=== PATIENT | male | born 1985 ===

== ENCOUNTER 2018-11-11 05:09 | Emergency (ER) | payer BC ==
[2018-11-11 05:40] LABS: Bilirubin Negative (Negative); Blood, Urine Negative (Negative); Clarity CLEAR (Clear); Glucose, Urine (Dipstick) Negative (Negative); Leukocyte Negative (Negative); Nitrite Negative (Negative); Protein, Urine (Dipstick) Negative (Neg-Trace); Specific Gravity, Urine 1.018 (1.002-1.036); Urobilinogen 0.2 mg/dL (0.2-1.0); pH, Urine 7.5 (5.0-9.0)
[2018-11-11 05:56] LABS: #Basophils 0.1 thou/uL (0.0-0.2); #Eosinphils 0.1 thou/uL (0.0-0.7); #Lymphocytes 1.8 thou/uL (1.20-3.40); #Neutrophils 14.6 thou/uL (1.40-6.50); %Basophils 0.3 % (0.0-1.0); %Eosinophils 0.7 % (0.0-10.0); %Lymphocytes 10.3 % (21.0-51.0); %Monocytes 5.8 % (0.0-10.0); %Neutrophils 82.9 % (42.0-75.0); Hemoglobin 15.8 g/dL (14.0-18.0); Mean Corpuscular HGB CONC 32.4 g/dL (32.0-36.0); Mean Corpuscular Hemoglobin 27.6 pg (27.0-31.0); Mean Corpuscular Volume 85.3 fL (78.0-98.0); Mean Platelet Volume 9.9 fL (7.4-10.4); Platelet Count 150 thou/uL (130-400); RBC Distribution Width 11.5 % (11.5-14.5); Red Blood Cell (RBC) Count 5.73 mill/uL (4.70-6.10); White Blood Cell (WBC) Count 17.6 thou/uL (4.8-10.8)
[2018-11-11 06:12] LABS: ALT (SGPT) 29 U/L (8-55); AST (SGOT) 17 U/L (5-34); Albumin 4.7 g/dL (3.5-5.0); Alkaline Phosphatase 92 U/L (40-150); Anion Gap 12 mmol/L (10-20); BUN (Urea Nitrogen) 14 mg/dL (8.9-20.6); Bilirubin, Total 0.8 mg/dL (0.2-1.2); Calc. Creatinine Clearance 0 mL/min (70-130); Carbon Dioxide 28 mmol/L (22-29); Chloride 100 mmol/L (98-107); Estimated GFR-MDRD 86; Glucose 108 mg/dL (70-105); Lipase 21 U/L (8-78); Potassium 3.7 mmol/L (3.5-5.1); Protein, Total 7.7 g/dL (6.0-8.3); Sodium 136 mmol/L (136-145)
== END 2018-11-11 06:46 | disposition left against medical advice (07) ==
LOC: ERS 05:09
DX: R10.11 Right upper quadrant pain (principal); R10.33 Periumbilical pain
CPT/HCPCS: 36415; 80053; 81003; 83690; 85025; 99283

== ENCOUNTER 2018-11-12 09:23 | Day surgery (SDC) | payer BC ==
[2018-11-12] MEDS ORDERED: Iopamidol 370 76% 100 ML VIAL ONE (09:32)
[2018-11-12 09:56] LABS: Hemoglobin 15.7 g/dL (14.0-18.0); Mean Corpuscular HGB CONC 32.2 g/dL (32.0-36.0); Mean Corpuscular Hemoglobin 27.9 pg (27.0-31.0); Mean Corpuscular Volume 86.8 fL (78.0-98.0); Mean Platelet Volume 12.9 fL (7.4-10.4); Platelet Count 135 thou/uL (130-400); Red Blood Cell (RBC) Count 5.63 mill/uL (4.70-6.10); White Blood Cell (WBC) Count 8.1 thou/uL (4.8-10.8)
[2018-11-12 10:03] LABS: ALT (SGPT) 26 U/L (8-55); AST (SGOT) 13 U/L (5-34); Albumin 4.6 g/dL (3.5-5.0); Alkaline Phosphatase 86 U/L (40-150); Anion Gap 11 mmol/L (10-20); BUN (Urea Nitrogen) 11 mg/dL (8.9-20.6); Bilirubin, Total 0.9 mg/dL (0.2-1.2); Calc. Creatinine Clearance 0 mL/min (70-130); Calcium 9.9 mg/dL (7.8-10.44); Carbon Dioxide 27 mmol/L (22-29); Chloride 105 mmol/L (98-107); Estimated GFR-MDRD Greater than 90; Globulin 3.2 g/dL (2.4-3.5); Glucose 94 mg/dL (70-105); Potassium 3.9 mmol/L (3.5-5.1); Protein, Total 7.8 g/dL (6.0-8.3); Sodium 139 mmol/L (136-145)
--- NOTE | 2018-11-12 10:17 | CT ---
FCT Abdomen Pelvis W Con History: [Abdominal pain. Right lower quadrant pain] Comparison: None. Findings: Lung bases are clear. No pericardial effusion. The gallbladder, liver, spleen are all [place] l. Adrenal glands are normal. No hydronephrosis. There is hyperenhancement of the wall of the appendix which is mildly dilated. Mild periappendiceal i nflammation. The appendix measures 1 cm in size. No evidence for a macro perforation. No dilated loops of large or small bowel. There is reactive michelle a within the cecum. Simple cyst inferior pole left kidney. No acute osseous abnormality. Impression: Uncomplicated acute appendicitis. The appendix arises from the medial margin of the cecum and extends caudad just anterior to the right psoas muscle.
[2018-11-12 10:25] LABS: #Basophils 0.1 thou/uL (0.0-0.2); #Eosinphils 0.2 thou/uL (0.0-0.7); #Lymphocytes 2.2 thou/uL (1.20-3.40); #Monocytes 0.8 thou/uL (0.11-0.59); #Neutrophils 4.9 thou/uL (1.40-6.50); %Basophils 1.1 % (0.0-1.0); %Eosinophils 2.2 % (0.0-10.0); %Lymphocytes 27.2 % (21.0-51.0); %Monocytes 9.2 % (0.0-10.0); %Neutrophils 60.3 % (42.0-75.0); Platelet Morphology Comment Appears Adequate; RBC Morphology Normal
[2018-11-12] MEDS ORDERED: Piperacillin/Tazobactam 4.5 GM VIAL ONE (10:27)
[2018-11-12] MEDS ORDERED: Sodium Chloride 0.9% 100 ML ONE (10:30)
[2018-11-12] MEDS ORDERED: Bupivacaine/Epinephrine 0.25% 30 ML VIAL ONE (13:05)
[2018-11-12] MEDS ORDERED: Ketorolac Tromethamine 30 MG/ML VIAL ONE (13:27)
[2018-11-12] MEDS ORDERED: Famotidine/PF 20 mg/2ml Vial ONE (13:27)
[2018-11-12] MEDS ORDERED: Fentanyl 100 MCG/2 ML VIAL ONE (13:29)
[2018-11-12] MEDS ORDERED: Dexamethasone 20 MG/5 ML VIAL ONE (15:07)
[2018-11-12] MEDS ORDERED: Glycopyrrolate 0.2 MG/ML 5 ML SYRINGE ONE (15:07)
[2018-11-12] MEDS ORDERED: Lidocaine 1% PF 5 ML VIAL ONE (15:07)
[2018-11-12] MEDS ORDERED: Ondansetron PF 4 MG/2 ML Vial ONE (15:07)
[2018-11-12] MEDS ORDERED: Succinylcholine Chloride 20 MG/ML 10 ml SYRINGE FS ONE (15:07)
[2018-11-12] MEDS ORDERED: PROPOFOL 200 MG/20 ML VIAL ONE (15:07)
[2018-11-12] MEDS ORDERED: Rocuronium Bromide 10 MG/ML (10ML VIAL) ONE (15:07)
--- NOTE | 2018-11-12 16:44 | OP ---
DATE OF PROCEDURE: 11/12/2018 PREOPERATIVE DIAGNOSIS: Acute appendicitis. POSTOPERATIVE DIAGNOSIS: Acute appendicitis. OPERATION PERFORMED: Laparoscopic appendectomy. ANESTHESIA: General endotracheal. ESTIMATED BLOOD LOSS: 5 mL. FLUIDS GIVEN: 500 mL crystalloids. COUNTS: Sponge and instrument counts were verified as correct x2. COMPLICATIONS: None apparent at the time of operation. INDICATIONS FOR OPERATION: This is a 33-year-old man, presented with recurrent right lower quadrant abdominal pain. Clinical radiographic examination was consistent with acute appendicitis, for which the patient was brought to the operating room for appendectomy. Findings are consistent with an intrapelvic appendix completely encased by omental and small bowel adhesions. DESCRIPTION OF PROCEDURE: Informed consent was obtained for the patient, he was brought to the operating room and placed in supine position. Following general anesthesia, the abdomen was sterilely prepped and draped in usual fashion. The skin below the umbilicus was infiltrated with 0.25% Marcaine with epinephrine. A small curvilinear infraumbilical incision was made using an 11 scalpel. Umbilical stalk was grasped with Lorraine and elevated. Veress needle inserted through the incision and placed in the peritoneal cavity through which the abdomen was insufflated with 3 L of CO2 gas. Intraabdominal pressure noted at 1 mmHg. Following abdominal insufflation, Veress needle was removed and replaced with a 5 mm trocar introduced using a Visiport under laparoscopy. Laparoscopy confirmed proper placement of the port. No injuries to underlying structures. Additional laparoscopy reveals the right lower quadrant obscured by omental adhesions. Under direct laparoscopy, two 5 mm suprapubic and left lower quadrant ports were placed after the overlying skin were infiltrated with 0.25% Marcaine with epinephrine and appropriate incision was made. The patient was placed in a Trendelenburg position, rotated to his left. I introduced Prestige grasper, attempted to use this to mobilize the omentum off the right lower quadrant with some difficulty as there was dense adhesions involving the omentum and the right lateral gutter. We then used LigaSure device to take down omental adhesions. Care was taken to avoid injuries to underlying bowel. The small bowel was then noted adhering to the right lower quadrant, obscuring the appendix and the cecum. Lateral attachments were carefully taken down using the LigaSure device. Once this was mobilized medially at intrapelvic, appendix was noted. We were able to bluntly dissect that path down till the distal ileum was traced down to the ileocecal junction. We were able to completely examine the distal ileum up to 2 feet from the ileocecal junction, finding no Meckel diverticulum. At this juncture, the Endo Adolfo forceps was introduced through the suprapubic port site grasping the appendix, which was elevated. Using the LigaSure device, the mesoappendix was divided serially down to the base with good hemostasis. The appendix itself was divided at the appendiceal-cecal junction between endo-loops. The suppurative appendix was then delivered off the abdominal cavity using an EndoCatch. Operative site was irrigated with saline, noting good hemostasis in place. Finding no other pathology, laparoscopy was terminated. The abdomen was desufflated. All sponges and instruments were removed and accounted for. Skin incisions were closed using 4-0 Monocryl suture in subcuticular fashion. Dermabond was applied over incisional closure. The patient tolerated the operation without any apparent complication and was returned to recovery room in satisfactory condition. Job ID: [id number]
[2018-11-13] MEDS ORDERED: Ropivacaine 0.2% HCl/PF 20 ML ONE (05:54)
--- NOTE | 2018-11-14 00:27 | HP ---
HISTORY OF PRESENT ILLNESS: Mr. Barr is a 33-year-old man who was in the usual state of health up until 2 days ago when developed worsening right lower quadrant abdominal pain. Pain was rated at 7/10, associated with some nausea, but no emesis. He reports having had similar pain 3 weeks previously, which resolved spontaneously. At this time, the pain has been unrelenting. The patient denies any fevers or chills. He denies any unexplained weight loss. PAST MEDICAL HISTORY: He denies any previous medical problems. PAST SURGICAL HISTORY: The patient denies any previous surgeries. 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 FAMILY HISTORY: The patient denies any family history of diabetes mellitus, hypertension, heart disease, or cancer. Denies any family history of inflammatory bowel disease. PREHOSPITALIZATION MEDICATIONS: None. ALLERGIES: THE PATIENT DENIES ANY KNOWN DRUG ALLERGIES. REVIEW OF SYSTEMS: 10-point review of systems is essentially unremarkable except as stated in past medical history and chief complaint. PHYSICAL EXAMINATION: GENERAL: This reveals a 33-year-old normally developed man, who is otherwise coherent, interactive, and appears stated age. The patient is alert and oriented x3, appears to be in no acute distress at time of my evaluation. VITAL SIGNS: Blood pressure of 137/82, pulse is 59, respiratory rate is 16, temperature is 98.2 degrees Fahrenheit, oxygen saturation is 99% on room air. HEENT: Reveals normocephalic and atraumatic. Pupils equal, round, reactive to light and accommodation. Extraocular muscles are intact bilaterally. No sclerae icterus present. Oral mucosa is pink and moist. No lesions are noted. NECK: Supple. No palpable lymphadenopathy or thyromegaly present. HEART: Reveals regular rate and rhythm. No murmurs or gallops auscultated. LUNGS: Clear to auscultation bilaterally. Breathing, regular and nonlabored. ABDOMEN: Soft with right lower quadrant tenderness at McBurney's. He has a positive Rovsing sign. Liver and spleen nonpalpable below costal margin. EXTREMITIES: 2+ radial and pedal pulses bilaterally. No ankle edema is present. NEUROLOGIC: Reveals no focal deficits present. LABORATORY FINDINGS: Includes a CBC with 8100 white blood cells, hemoglobin and hematocrit 15.7 and 48.9 respectively. Platelet count 135,000. Metabolic profile; sodium 139, potassium is 3.9, chloride is 105, bicarb 27, BUN 11, creatinine 0.90, glucose 94, AST and ALT normal at 13 and 26 respectively. I personally reviewed the CT scan of the abdomen and pelvis which is remarkable for a dilated appendix, which arises from the medial aspect of the cecum extending inferiorly into the pelvis with the tip overlying the right psoas muscle. There is surrounding fat stranding. No pneumoperitoneum or significant free fluid noted. IMPRESSION: Acute appendicitis. PLAN: 1. Laparoscopic appendectomy. 2. Above findings and plan discussed with the patient including the risks and benefits of proposed surgery to include, but not limited to bleeding, infection, injury to bowel or surrounding structures. 3. The patient indicates understanding of the information given. I have answered his questions. The patient granted consent for this admission and surgical intervention. Job ID: [id number]
== END 2018-11-12 17:20 | disposition home or self-care (01) ==
LOC: SCSER 09:23 → SDC 11:26
PROVIDERS: ATTEND Surgery
PROC: 0DTJ4ZZ Resection of Appendix, Percutaneous Endoscopic Approach (ICD-10-PCS; principal; 2018-11-12)
DX: K35.80 Unspecified acute appendicitis (principal)
CPT/HCPCS: 74177; 80053; 85025; 88304; 96361; 96365; J0131; J1100; J1885; J2001; J2405; J2543; J2704; J3010; J7050; Q9967; S0028